=== PATIENT | female | born 1970 | race Caucasian/White ===

== ENCOUNTER 2017-10-31 03:33 | Emergency (ER) | payer BC ==
[2017-10-31] MEDS: HYDROCODONE/APAP (5/325) TAB PO (05:00)
[2017-10-31] MEDS: KETOROLAC 60 MG INJ IM (05:11)
== END 2017-10-31 05:40 | disposition home or self-care (01) ==
LOC: FTE 03:33
DX: S63.501A Unspecified sprain of right wrist, initial encounter (principal); F17.210 Nicotine dependence, cigarettes, uncomplicated; X58.XXXA Exposure to other specified factors, initial encounter; Y92.9 Unspecified place or not applicable
CPT/HCPCS: 29125; 73110-RT; 81025; 96372; 99284-25